=== PATIENT | female | born 1985 ===

== ENCOUNTER 2023-03-29 18:15 | Inpatient (IN) | payer OTHER ==
[~2023-03-29] VITALS: Ht 165.1 cm; Wt 76.4 kg
[~2023-03-29 18:15] MED LIST: IBUP800 PO; PRENATAL TABLE1 EAC2 PO
[2023-03-29 18:23] VITALS: BP 130/76
[2023-03-29 19:15] LABS: BASOPHILS ABSOLUTE AUTO 0.03 K/mm3 (0.00-0.23); BASOPHILS PERCENT AUTO 0 % (0-2); EOSINOPHILS ABSOLUTE AUTO 0.02 K/mm3 (0.00-0.68); EOSINOPHILS PERCENT AUTO 0 % (0-6); Hematocrit 40.9 % (33.0-51.0); Hemoglobin 14.4 g/dL (11.5-16.0); IMMATURE GRAN ABSOLUTE AUTO 0.09 K/mm3 (0.00-0.10); IMMATURE GRAN PERCENT AUTO 1 % (0-1); LYMPHOCYTES ABSOLUTE AUTO 1.06 K/mm3 (0.84-5.20); LYMPHOCYTES PERCENT AUTO 8 % (21-46); MONOCYTES ABSOLUTE AUTO 0.68 K/mm3 (0.16-1.47); MONOCYTES PERCENT AUTO 5 % (4-13); Mean Corpuscular HGB 32.7 pg (26.0-34.0); Mean Corpuscular HGB Conc 35.2 g/dL (31.5-36.5); Mean Corpuscular Volume 93 fL (80-100); Mean Platelet Volume 11.7 fL (9.1-12.4); NEUTROPHILS ABSOLUTE AUTO 11.64 K/mm3 (1.96-9.15); NEUTROPHILS PERCENT AUTO 86 % (41-73); Platelet Count 193 K/mm3 (150-400); RDW Coefficient Variation 13.5 % (11.7-14.2); RDW Standard Deviation 45.8 fL (35.1-46.3); White Blood Cell Count 13.52 K/mm3 (4.00-11.30)
[2023-03-29 20:11] VITALS: BP 122/73
[2023-03-30] VITALS (12 sets, daily range): BP systolic 95–137; BP diastolic 53–87
[2023-03-31 01:05] VITALS: BP 92/54
[2023-03-31 07:48] VITALS: BP 107/67
[2023-03-31] MEDS ORDERED: IBUP800 PO (10:39)
[2023-03-31] MEDS ORDERED: TUCKS1 EACH TOP (10:39)
[2023-03-31] MEDS ORDERED: DOCU100 PO (10:39)
[2023-03-31] MEDS ORDERED: LANOLIN40 GM TOP (10:40)
--- NOTE | 2023-03-31 11:00 | NUR ---
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 ID bands matched w/nb and verification form. Mayank howard d/c'd. Pt d/c'd home ambulatory to care of .
== END 2023-03-31 11:15 | disposition home or self-care (01) | DRG 807 ==
LOC: OBS 18:15 → BC 18:16 → OBS 18:33 → BC 18:35
PROVIDERS: ADMIT Advanced Practice Midwife
PROC: 10E0XZZ Delivery of Products of Conception, External Approach (ICD-10-PCS; principal; 2023-03-30)
PROC: 0HQ9XZZ Repair Perineum Skin, External Approach (ICD-10-PCS; 2023-03-30)
DX: O48.0 Post-term pregnancy (principal); Z37.0 Single live birth; O70.0 First degree perineal laceration during delivery; Z3A.40 40 weeks gestation of pregnancy
CPT/HCPCS: 36415; 85025; 86850; 86900; 86901; A9270; J1885; J2590; J3010